=== PATIENT | female | born 1950 | race Caucasian/White ===

== ENCOUNTER 2019-11-06 12:19 | Outpatient (CLI) | payer MEDICARE ==
[~2019-11-06 12:19] MED LIST: REGADENOSON 0.4 MG/5 ML SYRINGE ONE
[2019-11-06] MEDS ORDERED: REGADENOSON 0.4 MG/5 ML SYRINGE ONE (15:33)
== END 2019-11-06 23:59 | disposition home or self-care (01) ==
LOC: CFH 12:19
PROVIDERS: ATTEND Internal Medicine Cardiovascular Disease
DX: R07.9 Chest pain, unspecified (principal); R00.2 Palpitations
CPT/HCPCS: 78452; 93017; A9502; J2785